=== PATIENT | male | born 1945 | race African-American/Black ===

== ENCOUNTER 2017-06-19 13:50 | Inpatient (IN) | payer OTHER, MEDICAID ==
[~2017-06-19] VITALS: Ht 185.4 cm; Wt 60.0 kg
[2017-06-19] VITALS: BP 180/87
[~2017-06-19 13:50] MED LIST: BENA20TA3; DILT30TA38; HYDR25TA; LISI1POW
[2017-06-19 15:43] LABS: CLARITY URINE CLEAR (CLEAR); COLOR URINE YELLOW (YELLOW); KETONES URINE NEGATIVE (NEGATIVE); LEUKOCYTE ESTERASE URINE NEGATIVE (NEGATIVE); NITRITE URINE NEGATIVE (NEGATIVE); OCCULT BLOOD URINE NEGATIVE (NEGATIVE); PH URINE 6.5 (4.5-8.0); PROTEIN URINE NEGATIVE (NEGATIVE); SPECIFIC GRAVITY URINE 1.009 (1.005-1.030); UROBILINOGEN URINE 0.2 E.U./dL (0.2-1.0)
[2017-06-19 15:45] LABS: HEMATOCRIT. 35.9 % (42.0-52.0); HEMOGLOBIN. 11.9 g/dL (14.0-18.0); MEAN CORPUSCULAR HEMOGLOBIN 30.4 pg (28.0-32.0); MEAN CORPUSCULAR VOLUME 91.7 fL (80.0-94.0); MEAN PLATELET VOLUME 9.6 fl (7.4-10.4); PLATELET 166 x1000/uL (130-400); RED BLOOD CELL COUNT 3.91 mill/uL (4.7-6.1); RED CELL DISTRIBUTION WIDTH 14.6 % (11.6-14.6)
[2017-06-19 15:48] LABS: INR 1.2; PROTHROMBIN TIME 12.2 sec (9.4-11.6)
[2017-06-19 15:59] LABS: CHLORIDE 100 mEq/L (98-107); TROPONIN I 0.19 ng/mL (0.00-0.04)
[2017-06-19 16:09] LABS: PLATELET ESTIMATE NORMAL
[2017-06-19] MEDS ORDERED: ASPIRIN 81MG TABLET PO NR (17:00)
[2017-06-19] MEDS ORDERED: FUROSEMIDE 40MG/4ML VIAL IVP NR (19:30)
[2017-06-19 21:15] VITALS: BP 184/94
[2017-06-19 21:30] VITALS: BP 184/94
[2017-06-19] MEDS ORDERED: P20 PO (21:49)
[2017-06-19] MEDS ORDERED: FURO40TA5 PO (21:49)
[2017-06-19] MEDS ORDERED: LISI40TA4 PO (21:49)
[2017-06-19] MEDS ORDERED: CLONIDINE 0.1MG TABLET PO PRN (23:30)
[2017-06-19] MEDS ORDERED: ACETAMINOPHEN 325MG TABLET PO PRN (23:30)
[2017-06-19] MEDS ORDERED: ONDANSETRON HCL 4MG/2ML VIAL IV PRN (23:30)
[2017-06-19] MEDS ORDERED: GUAIFENESIN 200MG/10ML SUGAR FREE UDC PO PRN (23:30)
[2017-06-19] MEDS ORDERED: IPRATROPIUM/ALBUTEROL 0.5-3(2.5)MG/3ML NEB INH PRN (23:30)
[2017-06-19] MEDS: LISINOPRIL 5MG TABLET PO SCH (23:30)
[2017-06-19] MEDS ORDERED: DOCUSATE SODIUM 100MG CAPSULE PO PRN (23:30)
[2017-06-19] MEDS ORDERED: HYDROMORPHONE HCL/PF 2MG/ML CPJ IV PRN (23:30)
[2017-06-20] VITALS: BP 180/87
[2017-06-20] MEDS ORDERED: IPRATROPIUM/ALBUTEROL 0.5-3(2.5)MG/3ML NEB INH SCH
[2017-06-20] MEDS: AMLODIPINE 10MG TABLET PO SCH ×2 (00:20→09:38)
[2017-06-20] MEDS ORDERED: LEVOFLOXACIN 500MG PREMIX 100 ML IV NR (02:00)
[2017-06-20 04:00] VITALS: BP 167/82
[2017-06-20 07:16] LABS: BASOPHILS % 0.1 % (0.0-2.0); EOSINOPHILS % 0.1 % (0.0-5.0); HEMATOCRIT. 35.7 % (42.0-52.0); HEMOGLOBIN. 12.2 g/dL (14.0-18.0); LYMPHOCYTES % 10.4 % (20.0-50.0); MEAN CORPUSCULAR HEMOGLOBIN 31.2 pg (28.0-32.0); MEAN CORPUSCULAR VOLUME 91.6 fL (80.0-94.0); MEAN PLATELET VOLUME 10.1 fl (7.4-10.4); MONOCYTES % 10.3 % (2.0-8.0); NEUTROPHILS % 79.1 % (40.0-76.0); PLATELET 151 x1000/uL (130-400); RED BLOOD CELL COUNT 3.89 mill/uL (4.7-6.1); RED CELL DISTRIBUTION WIDTH 14.3 % (11.6-14.6)
[2017-06-20 07:58] LABS: CHLORIDE 100 mEq/L (98-107)
[2017-06-20 08:00] VITALS: BP 153/76
[2017-06-20 08:05] LABS: CREATINE KINASE 83 IU/L (39-308); CREATINE KINASE MB FRACTION 3.5 ng/mL (0.5-3.6); HDL CHOLESTEROL 64 mg/dL (40-59); LDL CHOLESTEROL 122 mg/dL (5-100); TROPONIN I 0.15 ng/mL (0.00-0.04)
[2017-06-20] MEDS ORDERED: ENOXAPARIN 40MG/0.4ML SYR SUBCUT SCH (09:00)
[2017-06-20] MEDS ORDERED: ASPIRIN 81MG EC TABLET PO SCH (09:00)
[2017-06-20] MEDS: FUROSEMIDE 40MG/4ML VIAL IV SCH ×2 (09:36→17:00)
[2017-06-20] MEDS: LISINOPRIL 5MG TABLET PO SCH (09:38)
[2017-06-20 12:00] VITALS: BP 157/78
[2017-06-20 16:00] VITALS: BP 159/73
[2017-06-20] MEDS ORDERED: IPRATROPIUM/ALBUTEROL 0.5-3(2.5)MG/3ML NEB HHN SCH (16:00)
[2017-06-20 17:04] LABS: CREATINE KINASE MB FRACTION 2.9 ng/mL (0.5-3.6); TROPONIN I 0.13 ng/mL (0.00-0.04)
[2017-06-20 17:49] VITALS: BP 159/73
[2017-06-20] MEDS ORDERED: ATORVASTATIN CALCIUM 10MG TABLET PO SCH (21:00)
[2017-06-21] MEDS ORDERED: LEVOFLOXACIN 250MG PREMIX 50 ML IV SCH (02:00)
== END 2017-06-20 19:10 | disposition short-term general hospital (02) | DRG 292 ==
LOC: ER 13:56 → 5WST 19:24 → ENRESERV 20:15
PROVIDERS: ADMIT Hospitalist; ATTEND Hospitalist
DX: I11.0 Hypertensive heart disease with heart failure (principal); E44.0 Moderate protein-calorie malnutrition; Z99.81 Dependence on supplemental oxygen; J44.9 Chronic obstructive pulmonary disease, unspecified; I50.9 Heart failure, unspecified; Z72.0 Tobacco use; Z79.899 Other long term (current) drug therapy
CPT/HCPCS: 36415; 71045; 80053; 80061; 81003; 82550; 82553; 83880; 84484; 85025; 85610; 93005; 93306; 93970; 96374; 99285; J1650; J1940; J1956; J7050

== ENCOUNTER 2023-03-15 11:42 | Emergency (ER) | payer OTHER, MEDICAID ==
[~2023-03-15] VITALS: Ht 188 cm; Wt 55.0 kg
[~2023-03-15 11:42] MED LIST changes: +BENA-8; -BENA20TA3; +DILT30TA37; -DILT30TA38; +FURO40TA5 PO; -LISI1POW; +LISI40TA13 PO; +P20 PO
[2023-03-15 11:50] VITALS: O2SAT 98
[2023-03-15] MEDS ORDERED: ASPIRIN 81MG TABLET PO ONE (12:45)
[2023-03-15 13:21] LABS: BASOPHILS % 0.3 % (0.0-2.0); EOSINOPHILS % 0.2 % (0.0-5.0); HEMATOCRIT. 39.3 % (42.0-52.0); HEMOGLOBIN. 13.2 g/dL (14.0-18.0); LYMPHOCYTES % 7.9 % (20.0-50.0); MEAN CORPUSCULAR HEMOGLOBIN 30.2 pg (28.0-32.0); MEAN CORPUSCULAR HGB CONC 33.5 g/dL (31.0-37.0); MEAN CORPUSCULAR VOLUME 90.1 fL (80.0-94.0); MEAN PLATELET VOLUME 8.7 fl (7.4-10.4); MONOCYTES % 4.8 % (2.0-8.0); NEUTROPHILS % 86.8 % (40.0-76.0); PLATELET 242 x1000/uL (130-400); RED BLOOD CELL COUNT 4.36 mill/uL (4.7-6.1); RED CELL DISTRIBUTION WIDTH 14.9 % (11.6-14.6); WHITE BLOOD COUNT 9.3 x1000/uL (4.5-11.0)
[2023-03-15 13:28] LABS: CHLORIDE 110 mEq/L (98-107); INDEX HEMOLYSI 2 (1-3); INDEX ICTERIC 1 (1-4); INDEX LIPEMIC 1 (1-3); POTASSIUM 3.8 mEq/L (3.5-5.1); SODIUM 144 mEq/L (136-145)
[2023-03-15 13:38] LABS: ALANINE AMINOTRANSFERASE 12 IU/L (13-61); ALBUMIN 3.1 g/dL (3.4-5.0); ASPARTATE AMINOTRANSFERASE 18 IU/L (15-37); BILIRUBIN TOTAL 0.6 mg/dL (0.1-1.0); CALCIUM 8.7 mg/dL (8.5-10.1); CARBON DIOXIDE 27 mEq/L (21-32); CREATININE 1.2 mg/dL (0.6-1.3); GLUCOSE 204 mg/dL (70-105); NT PRO B-TYPE NATRIURETIC PEP 1681 pg/mL (5-125); PROTEIN TOTAL 8.1 g/dL (6.0-8.3); TROPONIN I HIGH SENSITIVITY 35 ng/L (<78); UREA NITROGEN BLOOD 17 mg/dL (7-21)
[2023-03-15] MEDS ORDERED: FUROSEMIDE 40MG/4ML VIAL IVP ONE (14:30)
[2023-03-15 15:19] LABS: TROPONIN I HIGH SENSITIVITY 30 ng/L (<78)
[2023-03-15 17:45] VITALS: BP 149/93; PULSE 76; RESP 24; TEMP 98.4
== END 2023-03-15 18:15 | disposition short-term general hospital (02) ==
LOC: ER 11:42
DX: R09.02 Hypoxemia (principal); J44.1 Chronic obstructive pulmonary disease with (acute) exacerbation; I11.0 Hypertensive heart disease with heart failure; I50.9 Heart failure, unspecified
CPT/HCPCS: 99285; 96374; 71045; 80053; 83880; 85025; 84484; 36415; 93005; J1940